=== PATIENT | male | born 1975 | race Caucasian/White ===

== ENCOUNTER 2024-02-26 00:33 | Emergency (ER) | payer MEDICAID ==
[~2024-02-26] VITALS: Ht 170.2 cm; Wt 72.6 kg
[2024-02-26 00:38] VITALS: BP 140/90; PULSE 130; RESP 20; TEMP 97.3; O2SAT 98
[2024-02-26] MEDS: diazePAM 5 MG TAB PO ONE (03:10)
[2024-02-26] MEDS ORDERED: CHLO-1446 PO (03:30)
[2024-02-26 04:27] VITALS: BP 146/87; PULSE 97; RESP 20; TEMP 98; O2SAT 98
== END 2024-02-26 04:27 | disposition home or self-care (01) ==
LOC: MED 00:33
DX: S50.312A Abrasion of left elbow, initial encounter (principal); S50.311A Abrasion of right elbow, initial encounter; F10.10 Alcohol abuse, uncomplicated; Z79.899 Other long term (current) drug therapy; Y90.9 Presence of alcohol in blood, level not specified; W18.39XA Other fall on same level, initial encounter; Y92.89 Other specified places as the place of occurrence of the external cause; Y93.89 Activity, other specified; Y99.8 Other external cause status
CPT/HCPCS: 99283